=== PATIENT | female | born 1990 | race Caucasian/White ===

== ENCOUNTER 2017-08-26 12:53 | Emergency (ER) | payer BC ==
--- NOTE | 2017-08-26 14:30 | Emergency Department Record ---
History of Present Illness - General Chief complaint: Abscess Stated complaint: CYST ON TAIL BONE Time Seen by Provider: 08/26/17 14:23 Mode of Arrival: Ambulatory - History of Present Illness Initial comments: 4 days of pain in the buttock and crease on the left side and it is in the same spot that was drained 18 months ago. complaint: Abscess/boil Onset/Timin -: Days(s) Location: Buttocks Severity scale (1-10): 10 Quality: Sharp Consistency: Constant Improves with: None Worsens with: Palpation, Movement Associated symptoms: Denies other symptoms Treatments Prior to Arrival: None - Related Data Previous Rx's Medication Instructions Recorded Cephalexin [Keflex] 500 mg PO QID #49 cap 08/26/17 Hydrocodone/Acetaminophen [[place] 1 each PO Q4HR #20 tablet 08/26/17 5-325 Tablet] Sulfamethoxazole/Trimethoprim 1 each PO BID #20 tablet 08/26/17 [Bactrim Ds Tablet] Allergies Allergy/AdvReac Type Severity Reaction Status Date / Time nystatin Allergy DIFFICULTY Verified 08/26/17 13:28 BREATHING Travel Screening - Travel/Exposure Within Last 30 Days Have you traveled within the last 30 days?: No Review of Systems Reviewed: No additional complaints except as noted below Constitutional: Reports: As per HPI. Denies: Chills, Fever, Malaise, Night sweats, Weakness, Weight change Eyes: Reports: As per HPI. Denies: Eye discharge, Eye pain, Photophobia, Vision change ENT: Reports: As per HPI. Denies: Congestion, Dental pain, Ear pain, Epistaxis , Hearing loss, Throat pain Respiratory: Reports: As per HPI. Denies: Cough, Dyspnea, Hemoptysis, Stridor, Wheezes Cardiovascular: Reports: As per HPI. Denies: Arrhythmia, Chest pain, Dyspnea on exertion, Edema, Murmurs, Orthopnea, Palpitations, Paroxysmal nocturnal dyspnea, Rheumatic Fever, Syncope Endocrine: Reports: As per HPI. Denies: Fatigue, Heat or cold intolerance, Polydipsia, Polyuria Gastrointestinal: Reports: As per HPI. Denies: Abdominal pain, Constipation, Diarrhea, Hematemesis, Hematochezia, Melena, Nausea, Vomiting Genitourinary: Reports: As per HPI. Denies: Abnormal menses, Discharge, Dyspareunia, Dysuria, Frequency, Hematuria, Incontinence, Retention, Urgency Musculoskeletal: Reports: As per HPI. Denies: Arthralgia, Back pain, Gout, Joint swelling, Myalgia, Neck pain Skin: Reports: As per HPI. Denies: Bruising, Change in color, Change in hair/ nails, Lesions, Pruritus, Rash Neurological: Reports: As per HPI. Denies: Abnormal gait, Confusion, Headache, Numbness, Paresthesias, Seizure, Tingling, Tremors, Vertigo, Weakness Psychiatric: Reports: As per HPI. Denies: Anxiety, Auditory hallucinations, Depression, Homicidal thoughts, Suicidal thoughts, Visual hallucinations Hematological/Lymphatic: Reports: As per HPI. Denies: Anemia, Blood Clots, Easy bleeding, Easy bruising, Swollen glands Past Medical History - SOCIAL HISTORY Smoking Status: Current every day smoker Alcohol Use: None Drug Use: None - RESPIRATORY Hx Respiratory Disorders: No - CARDIOVASCULAR Hx Cardio Disorders: No - NEURO Hx Neuro Disorders: No - GI Hx GI Disorders: No - Hx Genitourinary Disorders: No - ENDOCRINE Hx Endocrine Disorders: No - MUSCULOSKELETAL Hx Musculoskeletal Disorders: No - PSYCH Hx Psych Problems: No - HEMATOLOGY/ONCOLOGY Hx Hematology/Oncology Disorders: No Family Medical History Any Significant Family History?: No Physical Exam - General General Appearance: Alert, Oriented x3, Cooperative, No acute distress - Head Head exam: Normal inspection - Eye Eye exam: Normal appearance, PERRL Pupils: Normal accommodation - ENT ENT exam: Normal exam, Mucous membranes moist, Normal external ear exam, Normal orophraynx, TM's normal bilaterally Ear exam: Normal external inspection. negative: External canal tenderness Nasal Exam: Normal inspection. negative: Discharge, Sinus tenderness Mouth exam: Normal external inspection, Tongue normal Teeth exam: Normal inspection. negative: Dental caries Throat exam: Normal inspection. negative: Tonsillar erythema, Tonsillar exudate - Neck Neck exam: Normal inspection, Full ROM. negative: Tenderness - Respiratory Respiratory exam: Normal lung sounds bilaterally. negative: Respiratory distress - Cardiovascular Cardiovascular Exam: Regular rate, Normal rhythm, Normal heart sounds - GI/Abdominal GI/Abdominal exam: Soft, Normal bowel sounds, Other (buttock abscess and swollen and painful). negative: Tenderness - Rectal Rectal exam: Deferred - exam: Deferred - Extremities Extremities exam: Normal inspection, Full ROM, Normal capillary refill. negative: Tenderness - Back Back exam: Reports: Normal inspection, Full ROM. Denies: Muscle spasm, Rash noted, Tenderness - Neurological Neurological exam: Alert, Normal gait, Oriented X3, Reflexes normal - Psychiatric Psychiatric exam: Normal affect, Normal mood - Skin Skin exam: Dry, Intact, Normal color, Warm Course Vital Signs 08/26/17 13:20 Temperature 97.9 F Pulse Rate 58 L Respiratory 20 Rate Blood Pressure 135/95 Pulse Ox 98 - Reevaluation(s) Reevaluation #1: incision and drainage of left buttock shurclens 1% lidocaine incison with an 11 blade and purulent drainage packing placed 1/4 guaze and guaze dressing 08/26/17 14:30 Disposition Clinical Impression: Abscess Disposition: Home, Self-Care Condition: (1) Good Instructions: Abscess Incision and Drainage (ED) Additional Instructions: return to ED in 2 days to remove packing and to recheck the abscess. please give family list warm compresses 6 times a day or sitz baths motrin OTC every 6 hours Prescriptions: Hydrocodone/Acetaminophen [[place] 5-325 Tablet] 1 each PO Q4HR #20 tablet Cephalexin [Keflex] 500 mg PO QID #49 cap Sulfamethoxazole/Trimethoprim [Bactrim Ds Tablet] 1 each PO BID #20 tablet Time of Disposition: 14:41 Quality - Quality Measures Quality Measures: N/A - Blood Pressure Screening Does Patient Have Any of the Following: No Blood Pressure Classification: Hypertensive Reading Systolic Measurement: 135 Diastolic Measurement: 95 Screening for High Blood Pressure: < Pre-Hypertensive BP, F/U Documented > [ G8950] Pre-Hypertensive Follow-up Interventions: Referral to alternative/primary care provider.
[2017-08-26] MEDS ORDERED: CEPHALEXIN 500 MG CAPSULE PO STA (14:43)
[2017-08-26] MEDS ORDERED: TMP/SMZ 160MG/800MG TAB PO ONE (14:43)
== END 2017-08-26 15:00 | disposition home or self-care (01) ==
LOC: ER 12:53
DX: L02.31 Cutaneous abscess of buttock (principal)
CPT/HCPCS: 10060 ×2; 99284 ×2; J3490

== ENCOUNTER 2017-09-05 11:28 | Emergency (ER) | payer BC, MEDICAID ==
[2017-09-05] MEDS ORDERED: 0.9 % SODIUM CHLORIDE 1,000 ML BAG IV ONE (12:11)
--- NOTE | 2017-09-05 12:12 | Emergency Department Record ---
History of Present Illness - General Chief complaint: Abscess Stated complaint: CYST ON TAILBONE Time Seen by Provider: 09/05/17 12:11 Source: Patient, RN notes reviewed Mode of Arrival: Ambulatory - History of Present Illness Initial comments: patient seen 19 days ago with an Iand D and she had her mom take the packing out the next day and better and than 2 days ago started getting bad and the area is healed over. MD complaint: Abscess/boil Onset/Timin -: Days(s) Location: Generalized Improves with: Other Worsens with: Other Associated symptoms: Denies other symptoms Treatments Prior to Arrival: None - Related Data Previous Rx's Medication Instructions Recorded Cephalexin [Keflex] 500 mg PO QID #40 cap 09/05/17 Hydrocodone/Acetaminophen [[place] 1 each PO Q6HR #14 tablet 09/05/17 5-325 Tablet] Allergies Allergy/AdvReac Type Severity Reaction Status Date / Time nystatin Allergy DIFFICULTY Verified 08/26/17 13:28 BREATHING Travel Screening - Travel/Exposure Within Last 30 Days Have you traveled within the last 30 days?: Yes Location Detail:: [place] - Travel/Exposure Within Last Year Have you traveled outside the [place] in the last year?: No - Additonal Travel Details Have you been exposed to anyone with a communicable illness?: No - Travel Symptoms Symptom Screening: None Review of Systems Reviewed: No additional complaints except as noted below Constitutional: Reports: As per HPI. Denies: Chills, Fever, Malaise, Night sweats, Weakness, Weight change Eyes: Reports: As per HPI. Denies: Eye discharge, Eye pain, Photophobia, Vision change ENT: Reports: As per HPI. Denies: Congestion, Dental pain, Ear pain, Epistaxis , Hearing loss, Throat pain Respiratory: Reports: As per HPI. Denies: Cough, Dyspnea, Hemoptysis, Stridor, Wheezes Cardiovascular: Reports: As per HPI. Denies: Arrhythmia, Chest pain, Dyspnea on exertion, Edema, Murmurs, Orthopnea, Palpitations, Paroxysmal nocturnal dyspnea, Rheumatic Fever, Syncope Endocrine: Reports: As per HPI. Denies: Fatigue, Heat or cold intolerance, Polydipsia, Polyuria Gastrointestinal: Reports: As per HPI. Denies: Abdominal pain, Constipation, Diarrhea, Hematemesis, Hematochezia, Melena, Nausea, Vomiting Genitourinary: Reports: As per HPI. Denies: Abnormal menses, Discharge, Dyspareunia, Dysuria, Frequency, Hematuria, Incontinence, Retention, Urgency Musculoskeletal: Reports: As per HPI. Denies: Arthralgia, Back pain, Gout, Joint swelling, Myalgia, Neck pain Skin: Reports: As per HPI. Denies: Bruising, Change in color, Change in hair/ nails, Lesions, Pruritus, Rash Neurological: Reports: As per HPI. Denies: Abnormal gait, Confusion, Headache, Numbness, Paresthesias, Seizure, Tingling, Tremors, Vertigo, Weakness Psychiatric: Reports: As per HPI. Denies: Anxiety, Auditory hallucinations, Depression, Homicidal thoughts, Suicidal thoughts, Visual hallucinations Hematological/Lymphatic: Reports: As per HPI. Denies: Anemia, Blood Clots, Easy bleeding, Easy bruising, Swollen glands Past Medical History - SOCIAL HISTORY Smoking Status: Current every day smoker Alcohol Use: None Drug Use: None - RESPIRATORY Hx Respiratory Disorders: No - CARDIOVASCULAR Hx Cardio Disorders: No - NEURO Hx Neuro Disorders: No - GI Hx GI Disorders: No - Hx Genitourinary Disorders: No - ENDOCRINE Hx Endocrine Disorders: No - MUSCULOSKELETAL Hx Musculoskeletal Disorders: No - PSYCH Hx Psych Problems: No - HEMATOLOGY/ONCOLOGY Hx Hematology/Oncology Disorders: No Family Medical History Any Significant Family History?: No Physical Exam - General General Appearance: Alert, Oriented x3, Cooperative, No acute distress - Head Head exam: Normal inspection - Eye Eye exam: Normal appearance, PERRL Pupils: Normal accommodation - ENT ENT exam: Normal exam, Mucous membranes moist, Normal external ear exam, Normal orophraynx, TM's normal bilaterally Ear exam: Normal external inspection. negative: External canal tenderness Nasal Exam: Normal inspection. negative: Discharge, Sinus tenderness Mouth exam: Normal external inspection, Tongue normal Teeth exam: Normal inspection. negative: Dental caries Throat exam: Normal inspection. negative: Tonsillar erythema, Tonsillar exudate - Neck Neck exam: Normal inspection, Full ROM. negative: Tenderness - Respiratory Respiratory exam: Normal lung sounds bilaterally. negative: Respiratory distress - Cardiovascular Cardiovascular Exam: Regular rate, Normal rhythm, Normal heart sounds - GI/Abdominal GI/Abdominal exam: Soft, Normal bowel sounds, Tenderness (buttox pain midline) - Rectal Rectal exam: Deferred - exam: Deferred - Extremities Extremities exam: Normal inspection, Full ROM, Normal capillary refill. negative: Tenderness - Back Back exam: Reports: Normal inspection, Full ROM. Denies: Muscle spasm, Rash noted, Tenderness - Neurological Neurological exam: Alert, Normal gait, Oriented X3, Reflexes normal - Psychiatric Psychiatric exam: Normal affect, Normal mood - Skin Skin exam: Dry, Intact, Normal color, Warm Course Vital Signs 09/05/17 11:37 Temperature 98.5 F Pulse Rate 104 H Respiratory 18 Rate Blood Pressure 140/97 Pulse Ox 98 - Reevaluation(s) Reevaluation #1: incision and drainage 1% lidocaine 11 blade purulent drainage packing one quarter inch packing placed 09/05/17 13:15 Disposition Clinical Impression: Abscess Disposition: Home, Self-Care Condition: (1) Good Instructions: Abscess Incision and Drainage (ED) Additional Instructions: follow up with Dr. Morillo in 2 weeks Prescriptions: Hydrocodone/Acetaminophen [[place] 5-325 Tablet] 1 each PO Q6HR #14 tablet Cephalexin [Keflex] 500 mg PO QID #40 cap Forms: Patient Portal Access Time of Disposition: 13:20 Quality - Quality Measures Quality Measures: N/A - Blood Pressure Screening Does Patient Have Any of the Following: No Blood Pressure Classification: Hypertensive Reading Systolic Measurement: 140 Diastolic Measurement: 97 Screening for High Blood Pressure: < Pre-Hypertensive BP, F/U Documented > [ G8950] Pre-Hypertensive Follow-up Interventions: Referral to alternative/primary care provider.
[2017-09-05] MEDS ORDERED: HYDROMORPHONE HCL 2 MG/ML VIAL IVP ONE (12:15)
[2017-09-05] MEDS ORDERED: MIDAZOLAM HCL 2MG/2ML VIAL IV ONE (12:16)
== END 2017-09-05 15:38 | disposition home or self-care (01) ==
LOC: ER 11:28
DX: L02.31 Cutaneous abscess of buttock (principal)
CPT/HCPCS: 10060 ×2; 99284 ×2; 96374; 96375; J1170; J7030

== ENCOUNTER 2017-10-03 21:58 | Emergency (ER) | payer MEDICAID ==
--- NOTE | 2017-10-03 22:29 | Emergency Department Record ---
History of Present Illness - General Chief complaint: Vaginal bleeding Stated complaint: VAGINAL HEAVY BLEEDING Time Seen by Provider: 10/03/17 22:20 Source: Patient Mode of Arrival: Ambulatory Limitations: No limitations - History of Present Illness Initial comments: The patient is here due to heavy vaginal bleeding for the last 24 hours. She states she started her normal menses yesterday and is having more bleeding than normal. Now she is passing clots and going thru 4-6 pads an hour. She is having more pelvic cramping than she normally does but denies any significant dizziness or lightheadedness. MD Complaint: Vaginal bleeding Onset/Timin -: Days(s) Location: Other Radiation: Other Severity scale (1-10): 6 Quality: Cramping, Sharp Consistency: Constant Improves with: None Worsens with: Other LMP Date: 08/19/17 Gestational Age (wks) based on LMP: 6 Associated Symptoms: Vaginal bleeding - Related Data Home Medications Medication Instructions Recorded Confirmed Last Taken No Home Med [NO HOME MEDS] 10/03/17 10/03/17 Unknown Allergies Allergy/AdvReac Type Severity Reaction Status Date / Time nystatin Allergy DIFFICULTY Verified 08/26/17 13:28 BREATHING Travel Screening - Travel/Exposure Within Last 30 Days Have you traveled within the last 30 days?: No - Travel Symptoms Symptom Screening: None Review of Systems Constitutional: Denies: Chills, Fever Past Medical History - SOCIAL HISTORY Smoking Status: Current every day smoker - RESPIRATORY Hx Respiratory Disorders: No - CARDIOVASCULAR Hx Cardio Disorders: No - NEURO Hx Neuro Disorders: No - GI Hx GI Disorders: No - Hx Genitourinary Disorders: Yes Comment:: Endometriosis ; Polycystic ovaries; Polyps in uterus - ENDOCRINE Hx Endocrine Disorders: No - MUSCULOSKELETAL Hx Musculoskeletal Disorders: No - PSYCH Hx Psych Problems: No - HEMATOLOGY/ONCOLOGY Hx Hematology/Oncology Disorders: No Family Medical History Any Significant Family History?: Yes Family Hx Comment (NOT TO BE USED IN PLACE OF ITEMS BELOW): Grandmother w/ Thyroid issues ; Mom and grandmother with female reproductive organ issues Hx Cancer: Mother, Grandparents Hx HTN: Mother, Grandparents Physical Exam - General General Appearance: Alert, Oriented x3, Cooperative, No acute distress - Head Head exam: Atraumatic, Normocephalic, Normal inspection - Eye Eye exam: Normal appearance, PERRL - Neck Neck exam: Normal inspection, Full ROM. negative: Tenderness - Respiratory Respiratory exam: Normal lung sounds bilaterally. negative: Respiratory distress - Cardiovascular Cardiovascular Exam: Regular rate, Normal rhythm, Normal heart sounds - GI/Abdominal GI/Abdominal exam: Soft, Normal bowel sounds, Tenderness (There is mild lower abdominal tenderness.) - Extremities Extremities exam: Normal inspection, Full ROM, Normal capillary refill. negative: Tenderness Course Vital Signs 10/03/17 22:04 Temperature 98.2 F Pulse Rate 80 Respiratory 18 Rate Blood Pressure 132/82 Pulse Ox 96 - Reevaluation(s) Reevaluation #1: The patient is resting comfortably and feels better with the Toradol. I did explain to her that we are not able to perform a pelvic US here and I do believe she needs one. I did discuss the need to go to a larger hospital for the [place] and the patient picked [facility]. I then did discuss the case at length with Dr. Juárez in the [facility] ED and she does accept the patient in an ED to ED transfer. I did offer to send the patient by Ambulance but she chose to drive instead. She will stop and milk pickup driver her fiance to drive. 10/03/17 23:09 Medical Decision Making - Lab Data Result diagrams: 10/03/17 22:30 10/03/17 22:30 Disposition Disposition: Discharge Clinical Impression: Menorrhagia Qualifiers: Menorrahagia type: with regular cycle Qualified Code(s): N92.0 - Excessive and frequent menstruation with regular cycle Disposition: Acute Care Hospital Transfer Transfer To: [facility] Reason For Transfer: Accepting Physician: Marquita Time Discussed w/Accepting Physician: 23:06 Condition: (2) Stable Additional Instructions: Please proceed to the [facility] ED. Do not eat or drink until evaluated in the ED. Forms: Patient Portal Access Time of Disposition: 23:06 Quality - Quality Measures Quality Measures: N/A - Blood Pressure Screening View Details: Yes Does Patient Have Any of the Following: No Blood Pressure Classification: Pre-Hypertensive BP Reading Systolic Measurement: 132 Diastolic Measurement: 82 Screening for High Blood Pressure: < Pre-Hypertensive BP, F/U Documented > [ G8950] Pre-Hypertensive Follow-up Interventions: Referral to alternative/primary care provider.
[2017-10-03 22:41] LABS: BASO % 0.4 % (0-6); EOS % 1.6 % (0-6); HEMATOCRIT 40.6 % (35.0-47.0); HEMOGLOBIN 13.9 gm/dl (11.6-16.0); LYMPH % 32.8 % (16-45); MEAN CELL VOLUME 83.5 fl (81-97); MEAN CORPUSCULAR HEMOGLOBIN 28.6 pg (27-33); MEAN CORPUSCULAR HGB CONC 34.2 g/dl (32-36); MEAN PLATELET VOLUME 10.7 fl (7.4-10.4); MONO % 5.2 % (0-9); PLATELET COUNT 237 K/uL (130-400); RED BLOOD COUNT 4.86 M/uL (3.80-5.40); RED CELL DISTRIBUTION WIDTH 13.7 % (11.5-14.5); WHITE BLOOD COUNT W/O DIFF 9.4 K/uL (4.2-12.2)
[2017-10-03 22:55] LABS: BLOOD UREA NITROGEN 16 mg/dL (6-20); CREATININE 0.7 mg/dL (0.5-0.9); EST GLOMERULAR FILTRATION RATE > 60 mL/min
[2017-10-03] MEDS ORDERED: KETOROLAC 30 MG/ML VIAL IVP ONE (22:55)
[2017-10-03 22:58] LABS: GLUCOSE,RANDOM 105 mg/dL (74-109)
[2017-10-05 16:06] LABS: GC SPECIMEN TYPE Vaginal
== END 2017-10-03 23:20 | disposition short-term general hospital (02) ==
LOC: ER 21:58
DX: N92.0 Excessive and frequent menstruation with regular cycle (principal); M54.5 Low back pain; R10.2 Pelvic and perineal pain
CPT/HCPCS: 99284 ×2; 96374; 85025; 80048; 84703; J1885

== ENCOUNTER 2018-05-25 18:28 | Emergency (ER) | payer MEDICAID ==
--- NOTE | 2018-05-25 18:54 | Emergency Department Record ---
History of Present Illness - General Chief complaint: Abscess Stated complaint: CYST ON TAILBONE Time Seen by Provider: 05/25/18 18:49 Source: Patient Mode of Arrival: Ambulatory Limitations: No limitations - History of Present Illness Initial comments: 27 yo female presents to ED for evaluation of pain and swelling to the superior gluteal cleft region that began 3-4 days ago. Patient reports a history of pilonidal abscess formation previously, denies health problems at her baseline. Patient denies fevers, chills, or drainage from the area. MD complaint: Abscess/boil Onset/Timin -: Days(s) Location: Buttocks Severity: Moderate Severity scale (1-10): 10 Quality: Aching Consistency: Constant Improves with: Rest Worsens with: None, Palpation Associated symptoms: Denies other symptoms Treatments Prior to Arrival: None - Related Data Home Medications Medication Instructions Recorded Confirmed Last Taken Sulfamethoxazole/Trimethoprim 1 each PO BID 05/25/18 05/25/18 05/25/18 [Bactrim 400-80 mg Tablet] Allergies Allergy/AdvReac Type Severity Reaction Status Date / Time nystatin Allergy DIFFICULTY Verified 05/25/18 18:37 BREATHING Travel Screening - Travel/Exposure Within Last 30 Days Have you traveled within the last 30 days?: No - Travel/Exposure Within Last Year Have you traveled outside the [place] in the last year?: No - Additonal Travel Details Have you been exposed to anyone with a communicable illness?: No - Travel Symptoms Symptom Screening: None Review of Systems Constitutional: Denies: Chills, Fever, Malaise, Night sweats Eyes: Denies: Eye discharge, Eye pain ENT: Denies: Congestion, Ear pain, Epistaxis Respiratory: Denies: Cough, Dyspnea Cardiovascular: Denies: Chest pain, Dyspnea on exertion Endocrine: Denies: Fatigue, Heat or cold intolerance Gastrointestinal: Denies: Abdominal pain, Nausea, Vomiting Genitourinary: Denies: Incontinence, Retention Musculoskeletal: Denies: Arthralgia, Back pain, Gout, Joint swelling Skin: Reports: Other. Denies: Bruising, Change in color, Change in hair/nails Neurological: Denies: Abnormal gait, Confusion, Headache, Seizure Psychiatric: Denies: Anxiety Hematological/Lymphatic: Denies: Anemia, Blood Clots Past Medical History - SOCIAL HISTORY Smoking Status: Current every day smoker Alcohol Use: None, Rare Drug Use: None - RESPIRATORY Hx Respiratory Disorders: No - CARDIOVASCULAR Hx Cardio Disorders: No - NEURO Hx Neuro Disorders: No - GI Hx GI Disorders: No - Hx Genitourinary Disorders: Yes Comment:: Endometriosis ; Polycystic ovaries; Polyps in uterus - ENDOCRINE Hx Endocrine Disorders: No - MUSCULOSKELETAL Hx Musculoskeletal Disorders: No - PSYCH Hx Psych Problems: No - HEMATOLOGY/ONCOLOGY Hx Hematology/Oncology Disorders: No Family Medical History Any Significant Family History?: Yes Family Hx Comment (NOT TO BE USED IN PLACE OF ITEMS BELOW): Grandmother w/ Thyroid issues ; Mom and grandmother with female reproductive organ issues Hx Cancer: Mother, Grandparents Hx HTN: Mother, Grandparents Physical Exam - General General Appearance: Alert, Oriented x3, Cooperative, Mild distress Limitations: No limitations - Head Head exam: Atraumatic, Normocephalic, Normal inspection Head exam detail: negative: Abrasion, Contusion, Crow's sign, General tenderness, Hematoma, Laceration - Eye Eye exam: Normal appearance. negative: Conjunctival injection, Periorbital swelling, Periorbital tenderness, Scleral icterus - ENT Ear exam: negative: Auricular hematoma, Auricular trauma Nasal Exam: negative: Active bleeding, Discharge, Dried blood, Foreign body Mouth exam: negative: Drooling, Laceration, Tongue elevation - Neck Neck exam: Normal inspection. negative: Meningismus, Tenderness - Respiratory Respiratory exam: Normal lung sounds bilaterally. negative: Rales, Respiratory distress, Rhonchi, Stridor - Cardiovascular Cardiovascular Exam: Regular rate, Normal rhythm, Normal heart sounds - GI/Abdominal GI/Abdominal exam: Soft. negative: Rebound, Rigid, Tenderness - Rectal Rectal exam: Tenderness, Other (Mild pain with palpation to the left supra- gluteal fold on examination, no erythema, no induration is present.) - exam: Deferred - Extremities Extremities exam: Normal inspection. negative: Calf tenderness, Pedal edema, Tenderness - Back Back exam: Denies: CVA tenderness (R), CVA tenderness (L) - Neurological Neurological exam: Alert, Normal gait, Oriented X3 - Psychiatric Psychiatric exam: Normal affect, Normal mood - Skin Skin exam: Normal color. negative: Abrasion Type of lesion: negative: abrasion Course Vital Signs 05/25/18 18:30 Temperature 98.0 F Pulse Rate 92 H Respiratory 18 Rate Blood Pressure 148/89 Pulse Ox 99 - Reevaluation(s) Reevaluation #1: 05/25/18 20:27 Labs reviewed and are grossly unremarkable for an acute process. CT Pelvis with IV Contrast: [id number] area soft-tissues adjacent to the coccyx c/w phlegmon Patient was updated on all results, has an upcoming surgical consultation for repeated pilonidal cysts. Patient is also taking Bactrim as directed that was started yesterday. Patient appears stable for discharge at this time with instructions to return if her symptoms worsen. Medical Decision Making - Lab Data Result diagrams: 05/25/18 18:55 05/25/18 18:55 Disposition Disposition: Discharge Clinical Impression: Cellulitis, gluteal Disposition: Home, Self-Care Condition: (2) Stable Instructions: Cellulitis (ED) Additional Instructions: Return to ED if your symptoms worsen or if you have any concerns. Bactrim as directed. Follow-up with your family doctor in 3-5 days as directed. Forms: Patient Portal Access Time of Disposition: 20:30 Quality - Quality Measures Quality Measures: N/A - Blood Pressure Screening Does Patient Have Any of the Following: No Blood Pressure Classification: Pre-Hypertensive BP Reading Systolic Measurement: 148 Diastolic Measurement: 89 Screening for High Blood Pressure: < Pre-Hypertensive BP, F/U Documented > [ G8950] Pre-Hypertensive Follow-up Interventions: Referral to alternative/primary care provider.
[2018-05-25 19:08] LABS: BASO % 0.2 % (0-6); EOS % 1.2 % (0-6); HEMOGLOBIN 13.2 gm/dl (11.6-16.0); LYMPH % 30.2 % (16-45); MEAN CELL VOLUME 84.5 fl (81-97); MEAN CORPUSCULAR HEMOGLOBIN 27.2 pg (27-33); MEAN CORPUSCULAR HGB CONC 32.2 g/dl (32-36); MEAN PLATELET VOLUME 10.9 fl (7.4-10.4); MONO % 6.4 % (0-9); PLATELET COUNT 198 K/uL (130-400); RED BLOOD COUNT 4.85 M/uL (3.80-5.40); RED CELL DISTRIBUTION WIDTH 13.3 % (11.5-14.5); WHITE BLOOD COUNT W/O DIFF 8.4 K/uL (4.2-12.2)
[2018-05-25] MEDS ORDERED: ACETAMINOPHEN 1,000 MG/100 ML BTL IVPB ONE (19:13)
[2018-05-25 19:19] LABS: BLOOD UREA NITROGEN 16 mg/dL (6-20); CREATININE 0.7 mg/dL (0.5-0.9); EST GLOMERULAR FILTRATION RATE > 60 mL/min
[2018-05-25 19:22] LABS: GLUCOSE,RANDOM 89 mg/dL (74-109)
[2018-05-25 19:25] LABS: ALB/GLOB RATIO 1.6 (1.1-1.8); ALBUMIN 3.7 g/dL (4.0-5.0); ALKALINE PHOSPHATASE 51 U/L (35-104); ALT/SGPT 9 U/L (<33); AST/SGOT 10 U/L (10.0-35.0)
--- NOTE | 2018-05-27 15:05 | CT SCAN REPORT ---
EXAM: CT OF THE PELVIS WITH IV CONTRAST HISTORY: PILONIDAL CYST IN THE TAILBONE AREA. EVALUATE FOR ABSCESS. TECHNIQUE: Helical CT scan of the pelvis was obtained after the administration of 100 ml of intravenous Omnipaque 300. Comparison: None. FINDINGS: Posterior to the lowest coccygeal segment is a nodular area of soft tissue/complex fluid that measures 31 x 15 x 16 mm. There is fat stranding around this. No bone abnormality. Structures within the pelvis are within normal limits. The bowel is normal. The appendix is normal. The ovaries have normal size. A cervical ring is noted. The bony structures are unremarkable. There is slight posterior angulation of the distal coccygeal segment. IMPRESSION: SMALL COMPLEX FLUID VERSUS PHLEGMON POSTERIOR TO THE LOWEST COCCYGEAL SEGMENT, CONSISTENT WITH AN INFECTED PILONIDAL CYST. NO EVIDENCE OF OSTEOMYELITIS. JOB NUMBER: [id number] [facility]
== END 2018-05-25 20:40 | disposition home or self-care (01) ==
LOC: ER 18:28
DX: L05.01 Pilonidal cyst with abscess (principal); F17.210 Nicotine dependence, cigarettes, uncomplicated
CPT/HCPCS: 99284 ×2; 96365; 85025; 80053; 84703; 72193; Q9967

== ENCOUNTER 2018-05-27 17:25 | Emergency (ER) | payer MEDICAID ==
[2018-05-27] MEDS ORDERED: LORAZEPAM 2 MG/ML VIAL IV ONE (18:06)
[2018-05-27] MEDS ORDERED: HYDROMORPHONE HCL 2 MG/ML VIAL IVP ONE (18:06)
--- NOTE | 2018-05-27 18:11 | Emergency Department Record ---
History of Present Illness - General Chief complaint: Abscess Stated complaint: ABSCESS Time Seen by Provider: 05/27/18 17:30 Source: Patient Mode of Arrival: Ambulatory Limitations: No limitations - History of Present Illness Initial comments: 27 yo female returns to ED for worsening pain and swelling to the left gluteal fold area following evaluation 2 days ago. Patient has been taking Clindamycin , denies fevers, chills, nausea, or vomiting symptoms. Patient also reports history of similar abscesses previously. Patient denies health problems at her baseline. MD complaint: Abscess/boil Onset/Timin -: Days(s) Location: Buttocks Severity: Severe Quality: Aching Consistency: Constant Improves with: None Worsens with: None, Palpation Associated symptoms: Denies other symptoms Treatments Prior to Arrival: Antibiotic - Related Data Home Medications Medication Instructions Recorded Confirmed Last Taken Clindamycin Phosphate [Cleocin T] 60 ml TP DAILY 05/27/18 05/27/18 05/25/18 Etonogestrel/Ethinyl Estradiol 1 apply VG DAILY 05/27/18 05/27/18 05/27/18 [Nuvaring Vaginal Ring] Previous Rx's Medication Instructions Recorded Ibuprofen [Motrin] 800 mg PO Q6H PRN #30 tab 05/27/18 Allergies Allergy/AdvReac Type Severity Reaction Status Date / Time nystatin Allergy DIFFICULTY Verified 05/27/18 17:44 BREATHING Travel Screening - Travel/Exposure Within Last 30 Days Have you traveled within the last 30 days?: No - Travel/Exposure Within Last Year Have you traveled outside the [place] in the last year?: No - Additonal Travel Details Have you been exposed to anyone with a communicable illness?: No - Travel Symptoms Symptom Screening: None Review of Systems Constitutional: Denies: Chills, Fever, Malaise, Night sweats Eyes: Denies: Eye discharge, Eye pain ENT: Denies: Congestion, Ear pain, Epistaxis Respiratory: Denies: Cough, Dyspnea Cardiovascular: Denies: Chest pain, Dyspnea on exertion Endocrine: Denies: Fatigue, Heat or cold intolerance Gastrointestinal: Denies: Abdominal pain, Nausea, Vomiting Genitourinary: Denies: Incontinence, Retention Musculoskeletal: Denies: Arthralgia, Back pain Skin: Reports: Other (Redness, pain to the left superior gluteal fold.). Denies : Bruising, Change in color Neurological: Denies: Abnormal gait, Confusion, Headache Psychiatric: Reports: Anxiety Hematological/Lymphatic: Denies: Anemia, Blood Clots Past Medical History - SOCIAL HISTORY Smoking Status: Current every day smoker Alcohol Use: None Drug Use: None - RESPIRATORY Hx Respiratory Disorders: No - CARDIOVASCULAR Hx Cardio Disorders: No - NEURO Hx Neuro Disorders: No - GI Hx GI Disorders: No - Hx Genitourinary Disorders: Yes Comment:: Endometriosis ; Polycystic ovaries; Polyps in uterus - ENDOCRINE Hx Endocrine Disorders: No - MUSCULOSKELETAL Hx Musculoskeletal Disorders: No - PSYCH Hx Psych Problems: No - HEMATOLOGY/ONCOLOGY Hx Hematology/Oncology Disorders: No Family Medical History Any Significant Family History?: No Family Hx Comment (NOT TO BE USED IN PLACE OF ITEMS BELOW): Grandmother w/ Thyroid issues ; Mom and grandmother with female reproductive organ issues Hx Cancer: Mother, Grandparents Hx HTN: Mother, Grandparents Physical Exam - General General Appearance: Alert, Oriented x3, Cooperative, Moderate distress Limitations: No limitations - Head Head exam: Atraumatic, Normocephalic, Normal inspection Head exam detail: negative: Abrasion, Contusion, Crow's sign, General tenderness, Hematoma, Laceration - Eye Eye exam: Normal appearance. negative: Conjunctival injection, Periorbital swelling, Periorbital tenderness, Scleral icterus - ENT Ear exam: negative: Auricular hematoma, Auricular trauma Nasal Exam: negative: Active bleeding, Discharge, Dried blood, Foreign body Mouth exam: negative: Drooling, Laceration, Muffled voice, Tongue elevation - Neck Neck exam: Normal inspection. negative: Meningismus, Tenderness - Respiratory Respiratory exam: Normal lung sounds bilaterally. negative: Respiratory distress, Rhonchi, Stridor, Wheezes - Cardiovascular Cardiovascular Exam: Regular rate, Normal rhythm, Normal heart sounds - GI/Abdominal GI/Abdominal exam: Soft. negative: Distended, Rebound, Rigid, Tenderness - Rectal Rectal exam: Deferred - exam: Deferred - Extremities Extremities exam: Normal inspection. negative: Calf tenderness, Pedal edema, Tenderness - Back Back exam: Denies: CVA tenderness (R), CVA tenderness (L) - Neurological Neurological exam: Alert, Normal gait, Oriented X3 - Psychiatric Psychiatric exam: Normal affect, Normal mood - Skin Skin exam: Erythema Type of lesion: Abscess. negative: abrasion Distribution of rash: Other (superior gluteal fold) Description of rash: Erythematous, Fluctuant, Indurated Course Vital Signs 05/27/18 17:33 Temperature 98.8 F Pulse Rate 100 H Respiratory 18 Rate Blood Pressure 137/91 Pulse Ox 97 - Reevaluation(s) Reevaluation #1: 05/27/18 19:07 Attempted I & D following Dilaudid and Ativan followed by local infiltration without significant success due to patient discomfort. Discussed performing conscious sedation for further incision and drainage, and following discussion of risks and benefits, patient would like to proceed with sedation for further drainage. Reevaluation #2: 05/27/18 20:51 Following conscious sedation, Abscess to the left superior gluteal cleft was cleaned and prepped in sterile fashion with Hibiclens solution, wound was anesthetized with 1.5 mL of 1% Lidocaine with epinephrine with good anesthesia. Abscess was incised with #11 blade and probed with curved hemostats to break up loculations. Patient tolerated the procedure well without complications. Reevaluation #3: 05/27/18 19:49 Patient reassessed, arouses to voice, SO is at the bedside. Will continue to monitor until the patient is more fully awake. Reevaluation #4: 05/27/18 20:20 Patient reassessed, tolerating PO, reports that she is ready to go home at this time. Procedures - Procedural Sedation Indications: inciscion and drainage ASA Class: III Mallampati Airway Score: 3 Preparation: rug dyer helper applied, pulse oximeter, supplemental O2 applied, suction/airway equipment at bedside IV Etomidate Dose (mgs): 20 Complications: none Interventions: oxygen applied Patient Tolerated Procedure: Good Sedation Start Date: 05/27/18 Sedation Start Time: 19:22 Sedation End Date: 05/27/18 Sedation End Time: 19:28 Disposition Disposition: Discharge Clinical Impression: Gluteal abscess Disposition: Home, Self-Care Condition: (2) Stable Instructions: Abscess Incision and Drainage (ED), Abscess (ED) Additional Instructions: Return to ED if your symptoms worsen or if you have any concerns. Follow-up with Dr. Rolle tomorrow, call in AM for appointment. Motrin 800 mg as directed. Prescriptions: Ibuprofen [Motrin] 800 mg PO Q6H PRN #30 tab PRN Reason: Pain - Mod To Severe (5-10) Referrals: Luis Rolle [DOCTOR OF OSTEOPATH] - Forms: Patient Portal Access Time of Disposition: 19:58 Quality - Quality Measures Quality Measures: N/A - Blood Pressure Screening Does Patient Have Any of the Following: No Blood Pressure Classification: Hypertensive Reading Systolic Measurement: 137 Diastolic Measurement: 91 Screening for High Blood Pressure: < First Hypertensive BP, F/U Documented > [ G8950] First Hypertensive Follow-up Interventions: Referral to alternative/primary care provider.
[2018-05-27] MEDS ORDERED: ONDANSETRON HCL IV 4 MG/2 ML VIAL IVP ONE ×2 (18:26→19:47)
[2018-05-27] MEDS ORDERED: ETOMIDATE 20MG/10ML VIAL IVP ONE (19:07)
[2018-05-27] MEDS ORDERED: 0.9 % SODIUM CHLORIDE 1,000 ML BAG IV ONE (19:52)
[2018-05-27] MEDS ORDERED: KETOROLAC 30 MG/ML VIAL IVP ONE (20:03)
== END 2018-05-27 20:39 | disposition home or self-care (01) ==
LOC: ER 17:25
DX: L02.31 Cutaneous abscess of buttock (principal); F17.210 Nicotine dependence, cigarettes, uncomplicated
CPT/HCPCS: 10060 ×2; 99284 ×2; 96376; 96374; 96375; J1885; J2405; J1170; J2060; J7030

== ENCOUNTER 2018-05-29 20:07 | Emergency (ER) | payer MEDICAID ==
[2018-05-29] MEDS ORDERED: HYDROMORPHONE HCL 2 MG/ML VIAL IM ONE (20:29)
[2018-05-29] MEDS ORDERED: PROMETHAZINE HCL 25 MG/ML VIAL IM ONE (20:31)
[2018-05-29] MEDS ORDERED: LORAZEPAM 2 MG/ML VIAL IM ONE (20:35)
[2018-05-29] MEDS ORDERED: LORAZEPAM 2 MG/ML VIAL IV ONE (21:02)
[2018-05-29] MEDS ORDERED: HYDROMORPHONE HCL 2 MG/ML VIAL IVP ONE (21:02)
[2018-05-29] MEDS ORDERED: ONDANSETRON HCL IV 4 MG/2 ML VIAL IVP ONE (21:02)
--- NOTE | 2018-05-29 21:44 | Emergency Department Record ---
History of Present Illness - General Chief Complaint: Wound, check Stated Complaint: RECHECK Time Seen by Provider: 05/29/18 20:12 Source: Patient Mode of arrival: Ambulatory Limitations: No limitations - History of Present Illness Initial Comments: pt here because she feels her abscess is getting worse. she had it I & D 2 days ago and some drainage came out but she feels its getting worse, more painful, getting bigger Complaint: Wound re-check Onset/Timin -: Days(s) Initial Visit For: Abscess Returns Today for: Persistent/worsening pain related to initial visit Symptoms Since Prior Visit: Worsening pain Associated Symptoms: None Treatments Prior to Arrival: Given antibiotics on initial visit, Given pain medications on initial visit - Related Data Previous Rx's Medication Instructions Recorded Ibuprofen [Motrin] 800 mg PO Q6H PRN #30 tab 05/27/18 Hydrocodone/Acetaminophen [[place] 1 each PO Q6HR #7 tablet 05/30/18 5-325 Tablet] Allergies Allergy/AdvReac Type Severity Reaction Status Date / Time nystatin Allergy DIFFICULTY Verified 05/27/18 17:44 BREATHING Travel Screening - Travel/Exposure Within Last 30 Days Have you traveled within the last 30 days?: No - Travel Symptoms Symptom Screening: None Review of Systems Reviewed: No additional complaints except as noted below Constitutional: Reports: As per HPI. Denies: Chills, Fever, Malaise, Night sweats, Weakness, Weight change Eyes: Reports: As per HPI. Denies: Eye discharge, Eye pain, Photophobia, Vision change ENT: Reports: As per HPI. Denies: Congestion, Dental pain, Ear pain, Epistaxis , Hearing loss, Throat pain Respiratory: Reports: As per HPI. Denies: Cough, Dyspnea, Hemoptysis, Stridor, Wheezes Cardiovascular: Reports: As per HPI. Denies: Arrhythmia, Chest pain, Dyspnea on exertion, Edema, Murmurs, Orthopnea, Palpitations, Paroxysmal nocturnal dyspnea, Rheumatic Fever, Syncope Endocrine: Reports: As per HPI. Denies: Fatigue, Heat or cold intolerance, Polydipsia, Polyuria Gastrointestinal: Reports: As per HPI. Denies: Abdominal pain, Constipation, Diarrhea, Hematemesis, Hematochezia, Melena, Nausea, Vomiting Genitourinary: Reports: As per HPI. Denies: Abnormal menses, Discharge, Dyspareunia, Dysuria, Frequency, Hematuria, Incontinence, Retention, Urgency Musculoskeletal: Reports: As per HPI. Denies: Arthralgia, Back pain, Gout, Joint swelling, Myalgia, Neck pain Skin: Reports: As per HPI. Denies: Bruising, Change in color, Change in hair/ nails, Lesions, Pruritus, Rash Neurological: Reports: As per HPI. Denies: Abnormal gait, Confusion, Headache, Numbness, Paresthesias, Seizure, Tingling, Tremors, Vertigo, Weakness Psychiatric: Reports: As per HPI. Denies: Anxiety, Auditory hallucinations, Depression, Homicidal thoughts, Suicidal thoughts, Visual hallucinations Hematological/Lymphatic: Reports: As per HPI. Denies: Anemia, Blood Clots, Easy bleeding, Easy bruising, Swollen glands Past Medical History - SOCIAL HISTORY Smoking Status: Current every day smoker - RESPIRATORY Hx Respiratory Disorders: No - CARDIOVASCULAR Hx Cardio Disorders: No - NEURO Hx Neuro Disorders: No - GI Hx GI Disorders: No - Hx Genitourinary Disorders: Yes Comment:: Endometriosis ; Polycystic ovaries; Polyps in uterus - ENDOCRINE Hx Endocrine Disorders: No - MUSCULOSKELETAL Hx Musculoskeletal Disorders: No - PSYCH Hx Psych Problems: No - HEMATOLOGY/ONCOLOGY Hx Hematology/Oncology Disorders: No Family Medical History Any Significant Family History?: Yes Family Hx Comment (NOT TO BE USED IN PLACE OF ITEMS BELOW): Grandmother w/ Thyroid issues ; Mom and grandmother with female reproductive organ issues Hx Cancer: Mother, Grandparents Hx HTN: Mother, Grandparents Physical Exam - General General Appearance: Alert, Oriented x3, Cooperative, Mild distress - Head Head exam: Normal inspection - Eye Eye exam: Normal appearance, PERRL, EOMI Pupils: Normal accommodation - ENT ENT exam: Normal exam, Mucous membranes moist, Normal external ear exam, Normal orophraynx, TM's normal bilaterally Ear exam: Normal external inspection. negative: External canal tenderness Nasal Exam: Normal inspection. negative: Discharge, Sinus tenderness Mouth exam: Normal external inspection, Tongue normal Teeth exam: Normal inspection. negative: Dental caries Throat exam: Normal inspection. negative: Tonsillar erythema, Tonsillar exudate - Neck Neck exam: Normal inspection, Full ROM. negative: Tenderness - Respiratory Respiratory exam: Normal lung sounds bilaterally. negative: Respiratory distress - Cardiovascular Cardiovascular Exam: Regular rate, Normal rhythm, Normal heart sounds - GI/Abdominal GI/Abdominal exam: Soft, Normal bowel sounds. negative: Tenderness - Rectal Rectal exam: Other (pilonidal abscess) - exam: Deferred - Extremities Extremities exam: Normal inspection, Full ROM, Normal capillary refill. negative: Tenderness - Back Back exam: Reports: Normal inspection, Full ROM. Denies: Muscle spasm, Rash noted, Tenderness - Neurological Neurological exam: Alert, Normal gait, Oriented X3, Reflexes normal - Psychiatric Psychiatric exam: Normal affect, Normal mood - Skin Skin exam: Dry, Intact, Normal color, Warm Course Vital Signs 05/29/18 20:12 Temperature 97.7 F Pulse Rate [ 96 H Pulse Ox Probe] Respiratory 18 Rate Blood Pressure 135/87 [Right Arm] Pulse Ox 96 - Reevaluation(s) Reevaluation #1: 05/30/18 01:05 area was sterilely prepped and draped. anesthetized w lidp, incised w 11 blade. copious amts of purulent drainage were released. pt had a difficult time tolerating any touch despite multiple doses of dilaudid, ativan and versed. pt feels better after I&D 05/30/18 01:10 it was suggested to pt several times that packing be placed to promote draining. pt refused Disposition Disposition: Discharge Clinical Impression: Pilonidal abscess Disposition: Home, Self-Care Condition: (1) Good Instructions: Abscess (ED) Additional Instructions: follow up with dr go on thursday. return sooner if worse. continue clindamycin Prescriptions: Hydrocodone/Acetaminophen [[place] 5-325 Tablet] 1 each PO Q6HR #7 tablet Forms: Patient Portal Access Quality - Quality Measures Quality Measures: N/A - Blood Pressure Screening Does Patient Have Any of the Following: No Blood Pressure Classification: Pre-Hypertensive BP Reading Systolic Measurement: 140 Diastolic Measurement: 89 Screening for High Blood Pressure: < Pre-Hypertensive BP, F/U Documented > [ G8950] Pre-Hypertensive Follow-up Interventions: Follow-up with rescreen every year.
[2018-05-29] MEDS ORDERED: MIDAZOLAM HCL 2MG/2ML VIAL IV ONE (23:11)
[2018-05-30] MEDS ORDERED: HYDROMORPHONE HCL 2 MG/ML VIAL IVP ONE
[2018-05-30] MEDS ORDERED: MIDAZOLAM HCL 2MG/2ML VIAL IV ONE (00:33)
[2018-05-30] MEDS ORDERED: ONDANSETRON HCL IV 4 MG/2 ML VIAL IVP ONE (00:33)
--- NOTE | 2018-05-30 01:21 | Emergency Department Record ---
History of Present Illness - General Chief Complaint: Wound, check Stated Complaint: RECHECK Time Seen by Provider: 05/29/18 20:12 Source: Patient Mode of arrival: Ambulatory Limitations: No limitations - History of Present Illness Onset/Timin -: Days(s) Initial Visit For: Abscess Returns Today for: Persistent/worsening pain related to initial visit Symptoms Since Prior Visit: Worsening pain Associated Symptoms: None Treatments Prior to Arrival: Given antibiotics on initial visit, Given pain medications on initial visit - Related Data Previous Rx's Medication Instructions Recorded Ibuprofen [Motrin] 800 mg PO Q6H PRN #30 tab 05/27/18 Hydrocodone/Acetaminophen [[place] 1 each PO Q6HR #7 tablet 05/30/18 5-325 Tablet] Allergies Allergy/AdvReac Type Severity Reaction Status Date / Time nystatin Allergy DIFFICULTY Verified 05/27/18 17:44 BREATHING Travel Screening - Travel/Exposure Within Last 30 Days Have you traveled within the last 30 days?: No - Travel Symptoms Symptom Screening: None Review of Systems Constitutional: Reports: As per HPI. Denies: Chills, Fever, Malaise, Night sweats, Weakness, Weight change Eyes: Reports: As per HPI. Denies: Eye discharge, Eye pain, Photophobia, Vision change ENT: Reports: As per HPI. Denies: Congestion, Dental pain, Ear pain, Epistaxis , Hearing loss, Throat pain Respiratory: Reports: As per HPI. Denies: Cough, Dyspnea, Hemoptysis, Stridor, Wheezes Cardiovascular: Reports: As per HPI. Denies: Arrhythmia, Chest pain, Dyspnea on exertion, Edema, Murmurs, Orthopnea, Palpitations, Paroxysmal nocturnal dyspnea, Rheumatic Fever, Syncope Endocrine: Reports: As per HPI. Denies: Fatigue, Heat or cold intolerance, Polydipsia, Polyuria Gastrointestinal: Reports: As per HPI. Denies: Abdominal pain, Constipation, Diarrhea, Hematemesis, Hematochezia, Melena, Nausea, Vomiting Genitourinary: Reports: As per HPI. Denies: Abnormal menses, Discharge, Dyspareunia, Dysuria, Frequency, Hematuria, Incontinence, Retention, Urgency Musculoskeletal: Reports: As per HPI. Denies: Arthralgia, Back pain, Gout, Joint swelling, Myalgia, Neck pain Skin: Reports: As per HPI. Denies: Bruising, Change in color, Change in hair/ nails, Lesions, Pruritus, Rash Neurological: Reports: As per HPI. Denies: Abnormal gait, Confusion, Headache, Numbness, Paresthesias, Seizure, Tingling, Tremors, Vertigo, Weakness Psychiatric: Reports: As per HPI. Denies: Anxiety, Auditory hallucinations, Depression, Homicidal thoughts, Suicidal thoughts, Visual hallucinations Hematological/Lymphatic: Reports: As per HPI. Denies: Anemia, Blood Clots, Easy bleeding, Easy bruising, Swollen glands Past Medical History - SOCIAL HISTORY Smoking Status: Current every day smoker - RESPIRATORY Hx Respiratory Disorders: No - CARDIOVASCULAR Hx Cardio Disorders: No - NEURO Hx Neuro Disorders: No - GI Hx GI Disorders: No - Hx Genitourinary Disorders: Yes Comment:: Endometriosis ; Polycystic ovaries; Polyps in uterus - ENDOCRINE Hx Endocrine Disorders: No - MUSCULOSKELETAL Hx Musculoskeletal Disorders: No - PSYCH Hx Psych Problems: No - HEMATOLOGY/ONCOLOGY Hx Hematology/Oncology Disorders: No Family Medical History Any Significant Family History?: Yes Family Hx Comment (NOT TO BE USED IN PLACE OF ITEMS BELOW): Grandmother w/ Thyroid issues ; Mom and grandmother with female reproductive organ issues Hx Cancer: Mother, Grandparents Hx HTN: Mother, Grandparents Physical Exam - General Limitations: No limitations Course Vital Signs 05/29/18 05/29/18 05/30/18 20:12 22:05 00:03 Temperature 97.7 F 97.3 F L Pulse Rate [ 96 H 88 85 Pulse Ox Probe] Respiratory 18 18 19 Rate Blood Pressure 125/89 132/80 [Left Arm] Blood Pressure 135/87 [Right Arm] Pulse Ox 96 96 98 05/30/18 01:03 Temperature Pulse Rate [ 98 H Pulse Ox Probe] Respiratory 20 Rate Blood Pressure 140/89 [Left Arm] Blood Pressure [Right Arm] Pulse Ox 98 Disposition Disposition: Discharge Clinical Impression: Pilonidal abscess Disposition: Home, Self-Care Condition: (1) Good Instructions: Abscess (ED) Additional Instructions: follow up with dr rolle on thursday. return sooner if worse. continue clindamycin Prescriptions: Hydrocodone/Acetaminophen [[place] 5-325 Tablet] 1 each PO Q6HR #7 tablet Referrals: Luis Rolle [DOCTOR OF OSTEOPATH] - [facility] [Provider Group] Forms: Patient Portal Access Quality - Quality Measures Quality Measures: N/A - Blood Pressure Screening Does Patient Have Any of the Following: No Blood Pressure Classification: Pre-Hypertensive BP Reading Systolic Measurement: 140 Diastolic Measurement: 89 Screening for High Blood Pressure: < Pre-Hypertensive BP, F/U Documented > [ G8950] Pre-Hypertensive Follow-up Interventions: Follow-up with rescreen every year.
== END 2018-05-30 01:29 | disposition home or self-care (01) ==
LOC: ER 20:07
DX: L05.01 Pilonidal cyst with abscess (principal); F17.210 Nicotine dependence, cigarettes, uncomplicated
CPT/HCPCS: 99282 ×2; 96376; 96374; 96375; J2405 ×2; J1170 ×2; J2060